=== PATIENT | female | born 1935 | race Caucasian/White ===

== ENCOUNTER 2019-07-29 18:12 | Inpatient (IN) | payer MEDICARE ==
--- NOTE | 2019-07-29 18:56 | RAD ---
RADIOGRAPH CHEST 1 VIEW: DATE: 07/29/2019 HISTORY: 83-year-old female with generalized weakness. FINDINGS: There are no airspace densities, pulmonary edema, pneumothorax, or cardiomegaly. The lateral costophr enic angles are sharp. Sternotomy wires. Surgical clips over the lateral left lateral side of mediastinum and heart. IMPRESSION: 1. No acute cardiopulmonary findings. 2. Status post coronary artery bypass graft surgery is evidence for coronary atherosclerotic disease.
[2019-07-29 19:46] LABS: #Basophils 0.1 thou/uL (0.0-0.2); #Lymphocytes 1.8 thou/uL (1.20-3.40); #Monocytes 0.7 thou/uL (0.11-0.59); #Neutrophils 5.4 thou/uL (1.40-6.50); %Basophils 0.7 % (0.0-1.0); %Eosinophils 0.1 % (0.0-10.0); %Lymphocytes 22.5 % (21.0-51.0); %Monocytes 9.2 % (0.0-10.0); %Neutrophils 67.5 % (42.0-75.0); Hemoglobin 14.1 g/dL (12.0-16.0); Mean Corpuscular HGB CONC 33.2 g/dL (32.0-36.0); Mean Corpuscular Hemoglobin 29.4 pg (27.0-31.0); Mean Corpuscular Volume 88.7 fL (78.0-98.0); Mean Platelet Volume 8.6 fL (7.4-10.4); Platelet Count 301 thou/uL (130-400); Red Blood Cell (RBC) Count 4.79 mill/uL (4.20-5.40)
[2019-07-29] MEDS ORDERED: Ondansetron PF 4 MG/2 ML Vial ONE (19:52)
[2019-07-29 20:07] LABS: ALT (SGPT) 14 U/L (8-55); AST (SGOT) 28 U/L (5-34); Albumin 3.3 g/dL (3.4-4.8); Alkaline Phosphatase 70 U/L (40-110); Anion Gap 14 mmol/L (10-20); BUN (Urea Nitrogen) 26 mg/dL (9.8-20.1); CK (CPK) 96 U/L (29-168); Calc. Creatinine Clearance 0 mL/min (70-130); Calcium 8.8 mg/dL (7.8-10.44); Carbon Dioxide 20 mmol/L (23-31); Chloride 102 mmol/L (98-107); Estimated GFR-MDRD 65; Globulin 4.1 g/dL (2.4-3.5); Glucose 106 mg/dL (83-110); Protein, Total 7.4 g/dL (6.0-8.3); Sodium 133 mmol/L (136-145)
[2019-07-29 20:18] LABS: Potassium 2.9 mmol/L (3.5-5.1)
[2019-07-29 20:29] LABS: CKMB 2.6 ng/mL (0-6.6)
[2019-07-29] MEDS ORDERED: NS 0.9% w/ 20 MEQ KCL 1,000 ML IV SCH (21:00)
[2019-07-29 21:42] LABS: Bilirubin Negative (Negative); Blood, Urine 1+ (Negative); Clarity Clear (Clear); Glucose, Urine (Dipstick) Normal (Negative); Leukocyte 25 Leu/uL (Negative); Nitrite Negative (Negative); Protein, Urine (Dipstick) 600 mg/dL (Neg-Trace); Squamous Epithelial 0-3 HPF (0-3); Urobilinogen Normal mg/dL (Less than 2)
[2019-07-29 21:54] LABS: Bacteria/HPF Rare-Few HPF (None Seen)
[2019-07-29] MEDS ORDERED: Aspirin Chewable 81 MG TAB ONE ×2 (22:02)
[2019-07-29 23:15] LABS: Magnesium 2.2 mg/dL (1.6-2.6); Phosphorus 2.2 mg/dL (2.3-4.7)
[2019-07-30 00:08] LABS: Troponin I 0.021 ng/mL (< 0.028)
[2019-07-30] MEDS ORDERED: Acetaminophen 325 MG TAB PO PRN ×2 (01:30→08:15)
[2019-07-30] MEDS ORDERED: Ondansetron ODT 4 MG TAB SL PRN (01:30)
[2019-07-30] MEDS ORDERED: Ondansetron PF 4 MG/2 ML Vial IVP PRN (01:30)
[2019-07-30 02:24] VITALS: BMI 20.6
[2019-07-30 02:54] LABS: Troponin I 0.018 ng/mL (< 0.028)
[2019-07-30] MEDS ORDERED: Potassium Phosphate 9 MMOL in Sodium Chloride 0.9% 100 ML IVPB SCH (03:00)
[2019-07-30 07:46] LABS: Chloride 112 mmol/L (98-107); Potassium 3.6 mmol/L (3.5-5.1); Sodium 136 mmol/L (136-145)
[2019-07-30 07:47] LABS: Anion Gap 15 mmol/L (10-20); BUN (Urea Nitrogen) 18 mg/dL (9.8-20.1); BUN/Creatinine Ratio 24.32; Calc. Creatinine Clearance 44 mL/min (70-130); Calcium 7.8 mg/dL (7.8-10.44); Carbon Dioxide 13 mmol/L (23-31); Estimated GFR-MDRD 75; Glucose 80 mg/dL (83-110); Phosphorus 2.4 mg/dL (2.3-4.7)
[2019-07-30] MEDS ORDERED: Ondansetron ODT 4 MG TAB PO PRN (08:15)
[2019-07-30] MEDS ORDERED: Amlodipine 5 MG TAB PO SCH (09:00)
[2019-07-30 09:25] LABS: Free T4 (Free Thyroxine) 0.82 ng/dL (0.70-1.48); Thyroid Stimulating Hormone 3.9889 uIU/mL (0.35-4.94)
--- NOTE | 2019-07-30 09:31 | HP ---
PRIMARY CARE PHYSICIAN: Dr. Cassidy at [facility]. CHIEF COMPLAINT: "I was so weak, I couldn't walk." HISTORY OF PRESENT ILLNESS: Ms. Coronel is a very pleasant 83-year-old female, who has a history of rheumatoid arthritis and hypothyroidism. She says that on Thursday, she started feeling sick. She started having nausea and vomiting and she cannot remember how many times she threw up. She denies having any abdominal pain during this time. She denies vomiting any blood. She did not have any diarrhea. There was no fever, no chills, but the nausea and vomiting continued until last night and she says she got so weak that she could not get up and walk in her home and she had to call 911 to bring her to the hospital. There, she was evaluated and found to be hypokalemic. Chest x-ray was negative. Urinalysis was also negative for infection and she is being placed in observation for further evaluation. When I see her now, she says her symptoms are much improved and in fact she is already asking when she can go home. She lives alone, however, and does not have any help at home. REVIEW OF SYSTEMS: CONSTITUTIONAL: Again, no fevers or chills. No night sweats, but she does admit to having some significant weight loss. She says that she pretty much just drinks Ensure for no particular reason. However, she does get Meals on Wheels, but says that she only eats the meals that she likes. HEENT: She denies any headaches. No dizziness. No visual changes. No sore throat or rhinorrhea. NECK: No neck pain. No adenopathy. PULMONARY: No hemoptysis. No cough. No wheezing. CARDIOVASCULAR: She denies any chest pain. No shortness of breath. No PND. No orthopnea. GASTROINTESTINAL: As the history of present illness. GENITOURINARY: No urinary frequency or hematuria. No hesitancy. MUSCULOSKELETAL: She complains of some generalized weakness. She does use a walker to walk around her home. SKIN AND INTEGUMENT: No skin changes. No rash. PAST MEDICAL HISTORY: Significant for rheumatoid arthritis, hypothyroidism, and hyperlipidemia. PAST SURGICAL HISTORY: She has had some type of heart surgery, but she does not remember of what type. ALLERGIES: NO KNOWN DRUG ALLERGIES. SOCIAL HISTORY: She lives alone. She is . She has 4 children, one that lives locally. She is a nonsmoker and nondrinker. She would like to be a do not resuscitate. She does live independently. She uses a walker to get around. She again gets Meals on Wheels and drinks Ensure primarily for her nutrition and she does say that she can drive and do her own shopping. FAMILY HISTORY: Significant for rheumatoid arthritis. CURRENT MEDICATIONS: Include; 1. Levothyroxine 50 mcg p.o. daily. 2. Lipitor 40 mg daily. 3. Amlodipine 5 mg a day. PHYSICAL EXAMINATION: GENERAL: She is alert and oriented. She appears to be in no acute distress. She is well developed and well nourished. VITAL SIGNS: Blood pressure is 132/74, heart rate 78, respiratory rate of 16, temperature is 98.3, and O2 saturation is 96% on room air. HEENT: Pupils are equal, round, and reactive. Extraocular muscles are intact. Sclerae are anicteric. Throat; no erythema, no exudates. She is edentulous. NECK: There is no adenopathy. No bruits. LUNGS: Clear to auscultation. There are no wheezing, no rales, no rhonchi. CARDIOVASCULAR: She has a normal S1 and S2. There is no S3 or S4. No murmurs, clicks, or rubs. ABDOMEN: Soft. It is nontender and nondistended. Positive for bowel sounds. No rebound. No guarding. No organomegaly. EXTREMITIES: There is no calf tenderness. No joint effusions. NEUROLOGIC: Her cranial nerves are intact grossly. Muscle strength is also intact. SKIN AND INTEGUMENT: No skin changes. No rash. LABORATORY RESULTS: White blood cell count is 8, hemoglobin 14.1, hematocrit is 42.5, and platelet count is 301. Her sodium was 133, potassium 2.9, chloride is 102, CO2 is 20, BUN of 26, creatinine 0.84, and glucose is 106. Urinalysis was essentially negative. Her troponin was slightly elevated at 0.50 on admission, but has now trended back down. IMAGING DATA: Chest x-ray again showed no pulmonary vascular changes. ASSESSMENT AND PLAN: 1. This is a pleasant 83-year-old female, who presented to the emergency room with severe nausea and vomiting, likely as a result of gastroenteritis, which resulted in hypokalemia and she was extremely weak following this. However, it seems like her symptoms are close to resolution. She is being admitted for probable gastroenteritis with hypokalemia. Continue her IV fluids with potassium supplementation. We will recheck her serum electrolytes and also get a PT, OT consult if available today or get her up and ambulate her and if she is ambulatory without significant symptoms, then likely she can be discharged home later on today. Otherwise, we may need to consider [facility] placement since she is living alone. However, the patient does want to go home. 2. Hypothyroidism. She appears to be clinically euthyroid. We will go ahead and check a TSH and free T4, and likely check a vitamin D level as well. 3. Hyperlipidemia. We will continue Lipitor. Job ID: [id number]
[2019-07-30 11:49] VITALS: BP 149/71; TEMP 98
[2019-07-30] MEDS ORDERED: Atorvastatin Calcium 40 MG TAB PO SCH (21:00)
--- NOTE | 2019-07-30 21:12 | DIS ---
DATE OF ADMISSION: 07/30/2019 DATE OF DISCHARGE: 07/30/2019 DISCHARGE DISPOSITION: Home. PRIMARY DISCHARGE DIAGNOSES: 1. Hypokalemia. 2. Probable gastroenteritis. 3. Hypothyroidism. 4. History of rheumatoid arthritis. 5. Hypertension. DISCHARGE MEDICATIONS: 1. Synthroid 50 mcg daily. 2. Lipitor 40 mg daily. 3. Amlodipine 5 mg p.o. daily. CODE STATUS: DNAR. ALLERGIES: NO KNOWN DRUG ALLERGIES. HOSPITAL COURSE: Ms. Coronel is a pleasant 83-year-old female, who started having nausea and vomiting on Thursday several days prior to admission. After having nausea and vomiting, she became extremely weak. She was so weak, she could not get up and ambulate. For this reason, she called for an ambulance. She was evaluated in the ER and found to be hypokalemic, started on fluid replacement as well as replacement of her potassium. By the time she arrived in the ER, her symptoms began to improve. The following day, she was feeling back to her baseline. She was helped up and ambulated some without much difficulty. She normally walks with a walker. Since she was feeling close to her baseline, her potassium had been corrected and her symptoms have resolved. She is being discharged home with close followup. Job ID: [id number]
[2019-07-31] MEDS ORDERED: Levothyroxine Sodium 50 MCG TAB PO SCH (06:00)
== END 2019-07-30 15:41 | disposition home or self-care (01) | DRG 392 ==
LOC: ERS 18:12 → 2NO 07-30 01:12
PROVIDERS: ADMIT Internal Medicine; ATTEND Internal Medicine
DX: K52.9 Noninfective gastroenteritis and colitis, unspecified (principal); E87.6 Hypokalemia; M06.9 Rheumatoid arthritis, unspecified; E78.5 Hyperlipidemia, unspecified; E03.9 Hypothyroidism, unspecified; I10 Essential (primary) hypertension
CPT/HCPCS: 36415; 71045; 80053; 80069; 81003; 81015; 82306; 82550; 82553; 83735; 84100; 84439; 84443; 84484; 85025; 93005; 96361; 96365; 96366; 96375; J2405; J3480; J3490